=== PATIENT | male | born 1945 | race Caucasian/White ===

== ENCOUNTER 2017-03-13 16:53 | Inpatient (IN) ==
[2017-03-13] MEDS ORDERED: ASPIRIN 325 MG TABLET PO STA (17:35)
[2017-03-13] MEDS ORDERED: ONDANSETRON 4 MG/2 ML VIAL IV STA (17:35)
[2017-03-13] MEDS ORDERED: MORPHINE 2 MG/1 ML SYRINGE IV STA ×3 (17:35→17:55)
[2017-03-13] MEDS ORDERED: NITROGLYCERIN 2% OINT 1 INCH/GM PACK TOP STA (17:37)
[2017-03-13] MEDS ORDERED: ASPIRIN 325 MG TABLET ONE (17:39)
[2017-03-13] MEDS ORDERED: MORPHINE 2 MG/1 ML SYRINGE ONE ×2 (17:39→17:56)
[2017-03-13] MEDS ORDERED: ONDANSETRON 4 MG/2 ML VIAL ONE (17:39)
[2017-03-13] MEDS ORDERED: NITROGLYCERIN 2% OINT 1 INCH/GM PACK TOP ONE (17:39)
--- NOTE | 2017-03-13 17:39 | Emergency Department Note ---
Lionel Leggett Hilary, am scribing for, and in the presence of, Elie Limon MD 17: 30. Ashly Leggett James D, MD, personally performed the services described in this documentation, ascribed by Romana Flowers in my presence, and it is both accurate and complete 734 . Arrival - Arrival Chief Complaint: Chest Pain Stated Complaint: chest pain ED Nursing Triage Note: PT C/O LEFT SIDED CHEST PAIN SINCE 1400 TODAY. DESCRIBES SQUEEZING. PT TOOK 2 NTG ORDER EXPEDITER WITH SOME RELIEF. +DIAPHORESIS AT TRIAGE. Mode of Arrival: Wheelchair Limitations: No Limitations Source: Patient, RN Notes Reviewed - History of Present Illness HPI Narrative: Pt is a 71 y/o white male presenting to the ED with c/o chest pain which onset at 1400 today. Pt confirms left sided squeezing chest pain and diaphoresis but denies SOB or nausea. He states that he took 4 Nitro with minimal relief. Pt reports having this same feeling last year when he had a stent put in. No other complaints or problems stated in the ED. Onset (ago): hour(s) Consistency: constant Severity: mild Severity scale (1-10): 3 Quality: other (squeezing) Allergies/Adverse Reactions: Allergies Allergy/AdvReac Type Severity Reaction Status Date / Time Fsytrub-Cxy-Zvc Reductase AdvReac Muscle Pain Verified 03/13/17 17:10 Inhibitor Home Medications: Home Medications Medication Instructions Recorded Confirmed Type Aspirin [Ecotrin] 81 mg PO QAM 03/18/16 03/13/17 History Olmesartan/Hydrochlorothiazide 1 each PO QAM 03/18/16 03/13/17 History [Benicar Hct 20-12.5 mg Tablet] Clopidogrel Bisulfate [Clopidogrel] 75 mg PO QPM 03/13/17 03/13/17 History Cyanocobalamin (Vitamin B-12) 1,000 mcg PO BID 03/13/17 03/13/17 History [Vitamin B-12] Ezetimibe [Ezetimibe] 10 mg PO QAM 03/13/17 03/13/17 History Magnesium Chloride [Slow Mag] 64 mg PO BID 03/13/17 03/13/17 History Multivitamin/Iron/Folic Acid 1 each PO QPM 03/13/17 03/13/17 History [Centrum Complete Multivit Tab] [place]-3 Fatty Acids [Fish Oil] 300 mg PO BID 03/13/17 03/13/17 History Review of System - Review of System 12 point system: reviewed and no additional remarkable complaints except as stated - Review of System Constitutional: Present: diaphoresis. Absent: fever Respiratory: Absent: respiratory distress (SOB) Cardiovascular: Present: chest pain Gastrointestinal: Absent: nausea Medical,Surgical,& Family Hx - Medical History Cardio: History of: Hypertension, [place] Neurology: History of: Vertigo Endocrine: History of: Dyslipidemia Rheumatology: History of;: Rheumatoid Arthritis Genitourinary: History of: Kidney Stones Musculoskeletal: No history of: Osteoporosis - Surgical History Cardiac Surgeries: Sugical HX of: Cardiac Catheterization (FEB 2016) Abdominal Surgeries: Patient denies: Abdominal Surgery - Family History Family History: Reports;: Family Heart Disease (mother and brother), Family Hypertension - Social History Smoking Status: Never smoker Frequency of Alcohol Use: None Type of Drug Use: None Exam Physical Examination: GENERAL: This is a well-nourished, well-developed white male in no apparent distress. VITAL SIGNS: Temperature: 96.8 Pulse: 57 Respiratory: 18 Blood Pressure: 114/ 79 O2Sat: 96 HEENT: Head is normocephalic and atraumatic. Pupils are equally round and reactive to light. Extraocular movement are intact. Oropharynx is benign with moist mucous membranes. NECK: Neck is soft and supple without tenderness. There are no masses. There is no lymphadenopathy. LUNGS: Lungs are clear to auscultation bilaterally. Chest rises symmetrically. There is no chest wall tenderness. CV: Heart is bradycardic rate and rhythm without murmurs, rubs, or gallops. ABDOMEN: Abdomen is soft, non-tender to palpation. There are no abnormal masses palpated. There is no organomegaly. Bowel sounds are present and active. SKIN: Skin is warm and dry. No rash. EXTREMITIES: Patient has full range of motion without tenderness. There is no pedal edema. NEUROLOGIC: Awake, alert, and oriented x4. Cranial nerves II through XII are grossly intact. There are no motorsensory deficits. PSYCHIATRIC: Normal affect. Normal mood. Vital Signs: Vital Signs Temperature 96.8 F L 03/13/17 18:01 Pulse Rate 57 L 03/13/17 18:01 Respiratory Rate 18 03/13/17 18:01 Blood Pressure 114/79 03/13/17 18:01 O2 Sat by Pulse Oximetry 96 03/13/17 17:08 Course Course Narrative: Patient was given Lovenox, Nitropaste, aspirin, morphine, and Zofran in the emergency department. Patient will be taken to the Account Receivable Associate by Dr. Bowser for left heart cath and possible PCI. - Consultations Consultation #1: Discussed with Dr. Bowser. Patient will be admitted to her service. Initial orders written for her. He will assume care upon patient's arrival to the [facility]. Time: 17:39 Results - Labs CBC & BMP: 03/13/17 17:25 03/13/17 17:25 Lab Results: I have reviewed the patients labs Labs: Laboratory Tests 03/13/17 17:25 Troponin I 0.019 - EKG EKG results: interpreted by ERMD - Impressions EKG: Normal sinus rhythm with a rate of 63, nonspecific ST-T wave changes, left axis deviation. - Diagnostic Findings Procedure: Chest x-ray: image reviewed by me (No infiltrates, no pleural effusions) Disposition Clinical Impression: Unstable angina, CAD (coronary artery disease), Essential (primary) hypertension Case discussed with: patient, patient's family Disposition: Still a Patient Condition: Stable Time of Disposition: 18:29
[2017-03-13 17:46] LABS: Basophils # 0.1 10*3/uL (0.0-0.2); Basophils % 0.8 % (0.0-0.8); Eosinophils # 0.2 10*3/uL (0.0-0.87); Eosinophils % 2.8 % (0.00-10.9); Hematocrit 42.8 VOL% (42.0-52.0); Hemoglobin 15.2 GM/DL (14.0-18.0); Immature Granulocytes % 0.4 %; Immature Granulocytes Absolute 0.03 #; Lymphocytes % 26.1 % (21.2-54.2); Mean Corpuscular HGB Conc 35.5 GM/DL (32-36); Mean Corpuscular Hemoglobin 32 PG (27-34); Mean Corpuscular Volume 89.4 FL (87-102); Mean Platelet Volume 9.4 FL (9.6-12.0); Monocytes # 0.6 10*3/uL (0.11-0.8); Monocytes % 7.7 % (1.7-12.7); Neutrophils # 4.7 10*3/uL (1.4-7.4); Neutrophils % 62.2 % (38.7-73.9); Platelet Count 256 T/CUMM (130-400); Red Blood Count 4.79 MC/CUMM (3.8-5.5); Red Cell Distribution Width 12.9 % (9.3-17.3); White Blood Count 7.6 T/CUMM (4-12)
--- NOTE | 2017-03-13 17:48 | XRay Report ---
XR chest 1V portable Indication: Chest pain. Chest one view: Comparison 03/18/2016. Heart size and mediastinal contour remain normal. No new infiltrates are shown with diffuse continued peribronchial thickening present. No edema. Impression: Airways disease such as bronchitis or viral syndrome, similar to one year ago. PROCEDURE INTERPRETED AT [facility] DEPARTMENT OF RADIOLOGY Final Report Signed by: Trung Ann M.D.
[2017-03-13 17:59] LABS: PT Patient Result 10.3 SECS; Partial Thromboplastin Time 26.6 SECS (0-40)
--- NOTE | 2017-03-13 18:03 | EKG Report ---
Stationary ECG Study [facility] ER Test Date: 03/13/2017 6:02:04 PM Pat Name: ALEX BEATTY Department: Room: Gender: M Swine Genetics Researcher: : 1945 Requested by: Jessi Harden Order Number: [id number] Reading MD: VALENTINO ADAMS Intervals [place] Rate: 43 P: 59 SD: 217 QRS: -22 QRSD: 89 T: 83 QT: 427 QTc: 373 Interpretive Statements SINUS BRADYCARDIA WITH PROLONGED SD INTERVAL LEFT AXIS DEVIATION INCOMPLETE RBBB/PULMONARY DISEASE PATTERN Electronically Signed On 03-14-17 15:56:46 CDT by VALENTINO ADAMS [email or web address]
[2017-03-13] MEDS ORDERED: ENOXAPARIN 100 MG/ML SYRINGE SUBCUT STA (18:06)
[2017-03-13] MEDS ORDERED: ENOXAPARIN 100 MG/ML SYRINGE SUBCUT ONE (18:07)
[2017-03-13 18:22] LABS: Albumin 3.7 G/DL (3.4-5.0); Bilirubin,Total 0.4 MG/DL (0.2-1.0); Calcium 9.5 MG/DL (8.5-10.1); Magnesium 2.3 MG/DL (1.8-2.4); Osmolality,Calculated 281.4 MOS/KG (273-304); Potassium 4.1 MMOL/L (3.5-5.1); Total Protein 7.3 G/DL (6.4-8.3)
[2017-03-13] MEDS ORDERED: DIAZEPAM 5 MG TABLET PO ONE (18:26)
[2017-03-13] MEDS ORDERED: diphenhydrAMINE CAP 25 MG CAPSULE PO ONE (18:26)
--- NOTE | 2017-03-13 18:31 | Cardiology History & Physical ---
Assessment and Plan - Time spent with patient Time spent with patient: Greater than 30 minutes (Examination, documentation, film review, orders.) (1) Hypertension Status: Chronic Current Visit: No Qualifiers: Hypertension type: essential hypertension Qualified Code(s): I10 - Essential (primary) hypertension (2) Hyperglycemia Status: Chronic Assessment and plan: The patient states that Dr. Benson told him that he was "borderline." He states it has been 6 hours since he ate at noon and his blood sugar is 124. Current Visit: No (3) CAD (coronary artery disease) Status: Chronic Current Visit: No Qualifiers: Coronary Disease-Associated Artery/Lesion type: [place] artery [place] vs. transplanted heart: [place] heart Associated angina: with unstable angina Qualified Code(s): I25.110 - Atherosclerotic heart disease of [place] coronary artery with unstable angina pectoris (4) Unstable angina Status: Acute Assessment and plan: The patient is on dual antiplatelet therapy he has a heart rate in the 40s and continues to have discomfort. He looks uncomfortable at this time. The patient has stuttering pain has come and gone even during the duration of my exam. I think given the nature of his discomfort in the repetitive nature compared to his myocardial infarction in 2016 and the distribution of his stents with a potentially silent area and a troponin that is measurable at this time this represents an unstable situation. I think the patient should go for urgent left heart catheterization selective coronary angiography and possible percutaneous coronary mention. I discussed with the patient and his and he is agreeable. He understands that since it has only been 6 hours since he ate and this is an urgent situation he will not be given conscious sedation by hospital policy. He is agreeable to proceed with local anesthesia. Risks benefits and options were discussed with the patient consent was signed by both the patient and myself. The plan is to use a radial approach for maximal patient comfort. Current Visit: Yes (5) CAD (coronary artery disease) Status: Acute Current Visit: Yes (6) Essential (primary) hypertension Status: Acute Current Visit: Yes History of Present Illness Chief complaint: Chest pain History of present illness: Mr. Lino is a 71 year old male with known coronary disease who had PCI of the obtuse marginal 03/20/2016 at the time of acute coronary syndrome. This was performed by his embedded nurse Dr. Kris Benson. The patient has done well since that time until today around 230 PM he began having chest discomfort that was exactly like the pain that he had last February. The discomfort was a stuttering discomfort and has continued throughout the afternoon. When he got off work he came to the emergency room for evaluation. He has sinus bradycardia with no diagnostic ST segment changes but was administered medications in the emergency room and actually got worse after receiving a nitroglycerin. His pain continued to escalate when it was present it was 7 or 8 out of 10. He did not have associated nausea or diaphoresis but he does have discomfort in his shoulder. He states with the second dose of IV morphine he improved. His pain persist while I was they are evaluating him. He is currently on dual antiplatelet therapy for which he has been compliant. He has been intolerant of statins in the past. His primary care physician is Dr. Anup EPSTEIN and he drives to [place] to see him in his new practice. Home Medications Medication Instructions Recorded Confirmed Type Aspirin [Ecotrin] 81 mg PO QAM 03/18/16 03/13/17 History Olmesartan/Hydrochlorothiazide 1 each PO QAM 03/18/16 03/13/17 History [Benicar Hct 20-12.5 mg Tablet] Clopidogrel Bisulfate [Clopidogrel] 75 mg PO QPM 03/13/17 03/13/17 History Cyanocobalamin (Vitamin B-12) 1,000 mcg PO BID 03/13/17 03/13/17 History [Vitamin B-12] Ezetimibe [Ezetimibe] 10 mg PO QAM 03/13/17 03/13/17 History Magnesium Chloride [Slow Mag] 64 mg PO BID 03/13/17 03/13/17 History Multivitamin/Iron/Folic Acid 1 each PO QPM 03/13/17 03/13/17 History [Centrum Complete Multivit Tab] [place]-3 Fatty Acids [Fish Oil] 300 mg PO BID 03/13/17 03/13/17 History Allergies Allergy/AdvReac Type Severity Reaction Status Date / Time Msckyak-Zzw-Eob Reductase AdvReac Muscle Pain Verified 03/13/17 17:10 Inhibitor - Constitutional Constitutional: Present: weight gain. Absent: anorexia, chills, weakness - EENT Eyes: Absent: blurry vision, diplopia Ears: Absent: decreased hearing, ear discharge Nose, mouth and throat: Absent: epistaxis, headache(s), lip swelling, nasal congestion - Cardiovascular Cardiovascular: Present: chest pain at rest, chest pain with activity, lightheadedness. Absent: claudication, diaphoresis, edema, palpitations - Respiratory Respiratory: Absent: cough, dyspnea on exertion - Gastrointestinal Gastrointestinal: Absent: abdominal pain, dyspepsia, dysphagia, fecal incontinence, heartburn, hematemesis - Genitourinary Genitourinary: Absent: difficulty urinating, hematuria - Musculoskeletal Musculoskeletal: Present: arthralgias, myalgias (With statins) - Neurological Neurological: Absent: abnormal speech, behavioral changes, disequilibrium, dizziness - Psychiatric Psychiatric: Absent: anxiety, depression - Endocrine Endocrine: Absent: cold intolerance, heat intolerance - Hematologic/Lymphatic Hematologic/Lymphatic: Absent: easy bleeding, easy bruising Medical,Surgical,& Family Hx - Medical History Cardio: History of: Hypertension, [place] (PCI of the obtuse marginal 03/20/2016) Neurology: History of: Vertigo Endocrine: History of: Dyslipidemia Rheumatology: History of;: Rheumatoid Arthritis Genitourinary: History of: Kidney Stones Musculoskeletal: No history of: Osteoporosis - Surgical History Cardiac Surgeries: Sugical HX of: Cardiac Catheterization (FEB 2016) Abdominal Surgeries: Patient denies: Abdominal Surgery - Family History Family History: Reports;: Family Heart Disease (mother and brother), Family Hypertension - Social History Smoking Status: Never smoker Frequency of Alcohol Use: None Type of Drug Use: None Cardiology Physical Exam - Constitutional Vitals: Vital Signs Temp Pulse Resp BP Pulse Ox 96.8 F L 57 L 18 114/79 96 03/13/17 18:01 03/13/17 18:01 03/13/17 18:01 03/13/17 18:01 03/13/17 17:08 Intake and Output 03/13/17 03/13/17 03/13/17 07:59 15:59 23:59 Other: Weight 104.326 kg Patient Weight 03/13/17 23:59 Weight 104.326 kg General appearance: normal weight - Head Head exam: Present: normal inspection - Eye Eye exam: Present: EOMI - ENT ENT exam: Present: normal exam, other (His membranes are dry he does not have JVD) - Neck Neck exam: Present: normal inspection - Respiratory Respiratory exam: Present: clear to auscultation bilaterally - Cardiovascular Cardiovascular exam: Present: bradycardia (Heart rate is 45 it appears to be sinus.) - GI/Abdominal GI/Abdominal exam: Present: normal bowel sounds - Extremities Exam Extremities exam: Present: normal inspection - Back Exam Back exam: Present: normal inspection - Neurological Exam Neurological exam: Present: alert, oriented X3 - Psychiatric Psychiatric exam: Present: normal affect - Skin Skin exam: Present: normal color, warm Result/EKG - Labs CBC & BMP: 03/13/17 17:25 03/13/17 17:25 Labs: Laboratory Results - last 24 hr 03/13/17 03/13/17 03/13/17 17:25 17:25 17:25 WBC 7.6 RBC 4.79 Hgb 15.2 Hct 42.8 MCV 89.4 MCH 32 MCHC 35.5 RDW 12.9 Plt Count 256 MPV 9.4 L Neut % (Auto) 62.2 Lymph % (Auto) 26.1 Coal % (Auto) 7.7 Eos % (Auto) 2.8 Baso % (Auto) 0.8 Neut # (Auto) 4.7 Lymph # (Auto) 2.0 Coal # (Auto) 0.6 Eos # (Auto) 0.2 Baso # (Auto) 0.1 Immature Gran % 0.4 Nucleated RBC % 0.0 Immature Gran # 0.03 Nucleated RBCs # 0.00 Immature Plt Fraction 0.0 INR 1.0 PT Patient/Control Mix 10.3 Circ Anticoag PTT 26.6 Sodium 140 Potassium 4.1 Chloride 105 Carbon Dioxide 27 Anion Gap 12.1 BUN 18 Creatinine 1.20 GFR Calculation 80 BUN/Creatinine Ratio 15.00 Glucose 124 H Calculated Osmolality 281.4 Calcium 9.5 Magnesium 2.3 Total Bilirubin 0.40 AST 23 ALT 34 Alkaline Phosphatase 76 Troponin I Total Protein 7.3 Albumin 3.7 Globulin 3.6 H Albumin/Globulin Ratio 1.0 L Lipase 213.0 03/13/17 17:25 WBC RBC Hgb Hct MCV MCH MCHC RDW Plt Count MPV Neut % (Auto) Lymph % (Auto) Coal % (Auto) Eos % (Auto) Baso % (Auto) Neut # (Auto) Lymph # (Auto) Coal # (Auto) Eos # (Auto) Baso # (Auto) Immature Gran % Nucleated RBC % Immature Gran # Nucleated RBCs # Immature Plt Fraction INR PT Patient/Control Mix Circ Anticoag PTT Sodium Potassium Chloride Carbon Dioxide Anion Gap BUN Creatinine GFR Calculation BUN/Creatinine Ratio Glucose Calculated Osmolality Calcium Magnesium Total Bilirubin AST ALT Alkaline Phosphatase Troponin I 0.019 Total Protein Albumin Globulin Albumin/Globulin Ratio Lipase - Diagnostic Findings Procedure: Chest x-ray: image reviewed by me - EKG EKG results: interpreted by me (Sinus bradycardia. He has incomplete right bundle branch block T-wave inversion across the anterior precordium. No ST elevation)
--- NOTE | 2017-03-13 18:37 | History and Physical Update ---
Sedation H&P Update - History and Physical H&P was reviewed, the patient examined and there: are no changes in the patients condition since last H&P was completed. - Dictation Physical: refer to H&P completed by admitting physician - Physical Exam Mental Status: alert and oriented Heart: other (Regular bradycardia) Lung: clear to auscultation Abdomen: within normal limits Vitals: within normal limits - Sedation Plan for Sedation: other (local) Patient Consent: Procedure disscussed with patient and patinet has consented., Risks and benefits were discussed with patient,including infection,, bleeding, injury to surrounding structures, seizure, temporary nerve, Patient understands and accepts potential risks/benefits and agrees to, proceed. ASA Class: III Airway Assessment: Class III: Soft palate, base of uvula visible
[2017-03-13] MEDS ORDERED: LIDOCAINE 1% 20 ML VIAL ONE (18:43)
[2017-03-13] MEDS ORDERED: HEPARIN/NACL 0.9% 2 UNITS/ML 1,500 ML IV ONE (18:43)
[2017-03-13] MEDS ORDERED: diphenhydrAMINE CAP 50 MG CAPSULE ONE (18:44)
[2017-03-13] MEDS ORDERED: NITROGLYCERIN DRIP 50 MG/250 ML BOTTLE IV ONE ×2 (18:49→19:36)
[2017-03-13] MEDS ORDERED: MIDAZOLAM 2 MG/2 ML VIAL ONE (18:50)
[2017-03-13] MEDS ORDERED: fentaNYL 100 MCG/2 ML VIAL ONE (18:50)
[2017-03-13] MEDS ORDERED: VERAPAMIL 5 MG/2 ML VIAL ONE (18:50)
[2017-03-13] MEDS ORDERED: CLOPIDOGREL 75 MG TABLET PO SCH (19:00)
[2017-03-13] MEDS ORDERED: DOPamine 800 MG/250 ML PREMIX IV ONE (19:24)
[2017-03-13] MEDS ORDERED: ATROPINE 1 MG/1 ML VIAL ONE (19:29)
[2017-03-13] MEDS ORDERED: EPTIFIBATIDE 20,000 MCG/10 ML VIAL ONE (19:29)
[2017-03-13] MEDS ORDERED: EPTIFIBATIDE 75 MG/100 ML BOTTLE IV ONE (19:29)
[2017-03-13] MEDS ORDERED: HEPARIN/NACL 0.9% 2 UNITS/ML 500 ML IV ONE (19:49)
[2017-03-13] MEDS ORDERED: TICAGRELOR 90 MG TABLET ONE (20:09)
[2017-03-13] MEDS ORDERED: GLUCAGON 1 MG VIAL IM PRN (20:23)
[2017-03-13] MEDS ORDERED: DEXTROSE 50% 25 GM/50 ML SYRINGE IV PRN (20:23)
[2017-03-13] MEDS ORDERED: ZALEPLON 5 MG CAPSULE PO PRN (20:23)
[2017-03-13] MEDS ORDERED: MORPHINE 2 MG/1 ML SYRINGE IV PRN (20:26)
[2017-03-13] MEDS ORDERED: NITROGLYCERIN DRIP 50 MG/250 ML BOTTLE IV SCH (20:30)
--- NOTE | 2017-03-13 20:40 | Cardiac Catheterization ---
Date of Procedure:: 03/13/17 Pre-op Diagnosis: Acute coronary syndrome Post-op diagnosis: other (Non-ST elevation myocardial infarction secondary to 100% occlusion of a large right posterior lateral branch) Procedure: Procedure: 1. Left heart catheterization resting hemodynamics 2. Left and right selective coronary angiography 3. Percutaneous coronary mention of a large right posterior lateral branch with EDWARD 2 (4 0 x 12 mm Xience Alpine drug-eluting stent distally overlapping with a 4.0 x 8 mm Xience Alpine or proximally) 100% occlusion with DEE 0 flow pre-PCI and 0% occlusion angiographically post PCI with DEE-3 flow in the stented segment 4. POBA of the PLB 1 (99% stenosis ostially pre-PCI and 99% stenosis post POBA with DEE 2 flow) - Vessel felt to be too small to accept the risk of complication for stenting based upon location and potential benefit. 5. Aspiration thrombectomy of a large thrombus in the posterior lateral branch. After signed an informed consent was obtained, the patient was prepped and draped in standard fashion for right radial access. Time out was recorded. 0.5 mL of 1% lidocaine were infiltrated in the skin and subcutaneous tissue overlying the right radial artery and Seldinger technique was utilized with a Angiocath to obtain access to the right radial artery. A Terumo glide wire was then advanced into the midforearm under fluoroscopic guidance. The Angiocath was removed and a 6 [place] Terumo glide sheath was placed over the Glidewire. The sheath was aspirated and flushed and then 5 mg of verapamil and 200 g of nitroglycerin were given through the sheath. At this time an 035 J-wire was used to guide a Alvo 6 [place] catheter into the central aorta across the aortic valve and into the ventricle. Pressure measurements and pullback measurements were obtained. The Alvo catheter was then used to engage the left main coronary artery and multiple orthogonal views of the left system were obtained. The catheter then was torqued into the right coronary artery and orthogonal views of the right system were obtained. The catheter was then exchanged over the wire. The sheath was aspirated and flushed. At this time the catheter was exchanged over the exchange length 035 J-wire and AL 0.75 wire was advanced over the wire in the right coronary slightly engaged. A 180 cm Zingfinro water wire was advanced through the guide and into the posterior lateral branch. A 2.0 x 8 mm trek balloon was used to Dotter the area there was DEE I flow reestablished. The area of high-grade stenosis was then balloon to 10 rocio. The balloon was removed there is an enormous clot burden distal to the stenosis the balloon was removed and a Pronto V3 aspiration catheter was used to remove clot from this area. A very large red clot was removed there was dramatic improvement in the flow. At this time a 4 oh by 12 mm Xience Alpine stent was deployed at the takeoff of the PDA. There was DEE III flow in the remainder the vessel however he was DEE 0 flow in the PDA. Attempts to rewire this were unsuccessful nitroglycerin were given several times. After the vessel was opened the patient had a storm of bradycardia heart rate went into the 20s. He responded to 2 mg dose in 1 mg aliquots of atropine. His pressure and heart rate responded nicely and he remained stable. Multiple attempts to open the PDA were unsuccessful nitroglycerin was given again at this time there appeared to possibly be a lot linear dissection just proximal to the stent was probably caused by the wire and attempts to rewire the PDA so a second 4.0 x 8 mm Xience Alpine drug- eluting stent was used to overlap the proximal segment. These areas were postdilated to high pressure atmospheres with both NC and compliant balloons including the overlap. The wires were removed orthogonal views were obtained. In a ITALIAN view there was noticed to be an ostial high-grade stenosis of the first branch of the posterior lateral branch. With significant amount of difficulty in the area distal to the stent this was ultimately wired multiple inflations for as long as 1 minute with a 1.5 X8 [place] balloon. There was no improvement. Given the location and the size of the posterior lateral branch the angulation and the size of this branch of the extra lateral branch was felt that this was best left alone and treated medically. The wire was removed multiple orthogonal views were taken. The concrete wall grinder operator reviewed the films. And a TR band was placed over the glide sheath and used for hemostasis. Total contrast exposure 265 cc of visipaque Total x-ray exposure: 20.2 min fluoroscopy time and 3853 mGy air Kerma Findings: 1. EF not assessed 2. Hemodynamics LV: 122/4 EDP:13 Ao:120/70 3. Left main: Mild luminal irregularities and this is a very small vessel. 4: Left anterior descending artery: There is diffuse moderate disease in the LAD that this progressed minimally from his previous left heart catheterization. There is mild to moderate disease throughout but no high- grade epicardial stenosis in the LAD or its large first diagonal. 5: Left circumflex artery: This vessel is nondominant. The previously deployed stents in the obtuse marginal are widely patent with minimal lumen loss 6: Right coronary artery: Is a very large dominant vessel. There is ectasia in the proximal segment. There is approximately 40% ostial stenosis of a right PDA. The there is a large posterior lateral branch that has a small nipple and 100% occlusion at the takeoff of the PDA. There is DEE 0 flow in this vessel. After the posterior lateral branch was opened. There is a first branch the posterior lateral branch has ostial 99% stenosis. It has DEE II flow this was ballooned but felt too small for stenting safely. Despite multiple attempts to cross into the PDA and multiple doses of nitroglycerin there was no success in opening the occluded PDA that was potentially jailed. The intent was to be distal to this branch and this may represent plaque shift. Plan: 1. Therapeutic lifestyle changes. 2. Escalate dual antiplatelet therapy the patient had a massive clot burden on clopidogrel and aspirin 3. Cardiac rehabilitation 4. Because of bradycardia and ventricular bigeminy with catholic of flow the patient be monitored in the ICU. I anticipate a significant troponin elevation. 5. If the patient's bradycardia resolves consider beta-gisele at this time his heart rate will not allow 6. The patient is intolerant of statins in the past continue Zetia consider PCS canine inhibitors 7. Continue aspirin and ARB Implants: 4.0 x 12 mm Xience Alpine drug-eluting stent 4.0 x 8 mm Xience Alpine drug-eluting stent Anesthesia: local Surgeon / Physician: Ginna Bowser Twister Tender Paper: none Estimated blood loss: none Specimens: none sent Condition: other (Guarded) Disposition: ICU/CCU - Medications / Follow-up
[2017-03-13] MEDS ORDERED: PNEUMOCOCCAL VACCINE (13 VALENT) 0.5 ML SYRINGE IM ONE (21:08)
[2017-03-13] MEDS: INSULIN REGULAR 100 UNIT/ML SUBCUT SCH (21:11)
[2017-03-13] MEDS: MAGNESIUM CHLORIDE 64 MG TABLET PO SCH (21:17)
[2017-03-13] MEDS: SODIUM CHLORIDE 0.45% 1,000 ML IV SCH (21:17)
[2017-03-13] MEDS: TICAGRELOR 90 MG TABLET PO SCH (21:18)
[2017-03-13] MEDS: OMEGA 3 ACID ETHYL ESTERS 1 GM CAPSULE PO SCH (21:18)
[2017-03-13] MEDS: MULTIVITAMIN (CENTRUM) TABLET PO SCH (21:18)
[2017-03-13] MEDS: CYANOCOBALAMIN 500 MCG TABLET PO SCH (21:20)
[2017-03-14 04:41] LABS: Basophils % 0.2 % (0.0-0.8); Eosinophils # 0.1 10*3/uL (0.0-0.87); Eosinophils % 1.5 % (0.00-10.9); Hematocrit 38.9 VOL% (42.0-52.0); Hemoglobin 13.6 GM/DL (14.0-18.0); Immature Granulocytes % 0.2 %; Immature Granulocytes Absolute 0.02 #; Lymphocytes # 1.8 10*3/uL (1.4-4.0); Lymphocytes % 20.9 % (21.2-54.2); Mean Corpuscular Hemoglobin 31 PG (27-34); Mean Corpuscular Volume 89.4 FL (87-102); Mean Platelet Volume 9.6 FL (9.6-12.0); Monocytes # 0.6 10*3/uL (0.11-0.8); Monocytes % 7.1 % (1.7-12.7); Neutrophils % 70.1 % (38.7-73.9); Platelet Count 216 T/CUMM (130-400); Red Blood Count 4.35 MC/CUMM (3.8-5.5); Red Cell Distribution Width 12.9 % (9.3-17.3); White Blood Count 8.5 T/CUMM (4-12)
[2017-03-14 05:06] LABS: Osmolality,Calculated 280.4 MOS/KG (273-304); Potassium 3.8 MMOL/L (3.5-5.1)
[2017-03-14 05:10] LABS: Risk Ratio 5.76; VLDL CHOLESTEROL 56.2 MG/DL
--- NOTE | 2017-03-14 05:57 | EKG Report ---
Stationary ECG Study [facility] ER Test Date: 03/13/2017 5:04:22 PM Pat Name: ALEX BEATTY Department: Room: 123 Gender: M Manager Of Security: : 1945 Requested by: Renée Palomino Order Number: [id number] Caren MD: VALENTINO ADAMS Intervals [place] Rate: 63 P: 57 SD: 205 QRS: -30 QRSD: 86 T: 78 QT: 387 QTc: 393 Interpretive Statements SINUS RHYTHM LEFT AXIS DEVIATION INCOMPLETE RBBB/PULMONARY DISEASE PATTERN Electronically Signed On 03-14-17 15:55:21 CDT by VALENTINO ADAMS [id number]
[2017-03-14] MEDS: SODIUM CHLORIDE 0.45% 1,000 ML IV SCH ×2 (07:48→15:37)
--- NOTE | 2017-03-14 07:50 | Cardiology Progress Note ---
Assessment and Plan (1) Hypertension Status: Chronic Current Visit: No Qualifiers: Hypertension type: essential hypertension Qualified Code(s): I10 - Essential (primary) hypertension (2) Hyperglycemia Status: Chronic Current Visit: No (3) CAD (coronary artery disease) Status: Chronic Current Visit: No Qualifiers: Coronary Disease-Associated Artery/Lesion type: [place] artery [place] vs. transplanted heart: [place] heart Associated angina: with unstable angina Qualified Code(s): I25.110 - Atherosclerotic heart disease of [place] coronary artery with unstable angina pectoris (4) Essential (primary) hypertension Status: Acute Current Visit: Yes (5) Non-ST elevated myocardial infarction (non-STEMI) Status: Acute Assessment and plan: S/p urgent PCI of the RCA with EDWARD X 2 and loss of rPDA due to spasm/plaque shift. Current Visit: Yes Cardiology - PN: Subj Interval history: Mr. Lino is doing well this morning he has not had any additional chest pain. The [place] nurses report a 6 beat run of nonsustained ventricular tachycardia. This is not in the chart at this time. Hopefully it will appear later. I will review the telemetry. The patient has not had any chest pain. His vital signs have remained stable his urine output has been good. His troponin is still rising will check a few more troponins. Anticipate transfer to the floor. The patient is on angiotensin receptor gisele and dual antiplatelet therapy. He is also on prophylactic dose heparin for DVT. The patient is intolerant of all previous statins and declines a statin. He currently has persistent bradycardia and had heart rate into the teens at the time of his revascularization I think the beta-gisele should be held at this time. Heart rate is about 55 when I saw him. I discussed all the findings last night in the intervention with the patient including the loss of the PDA. Exam (Progress Note) - Constitutional Vitals: Period Temp Pulse Resp BP Sys/Cuevas Pulse Ox Last 24 Hr 96.8 F-98.3 F 52-68 12-18 94-155/62-82 92-96 General appearance: normal weight - Head Head exam: Present: normal inspection - Eye Eye exam: Present: EOMI - ENT ENT exam: Present: normal exam - Neck Neck exam: Present: normal inspection - Respiratory Respiratory exam: Present: clear to auscultation bilaterally - Cardiovascular Cardiovascular exam: Present: bradycardia - GI/Abdominal GI/Abdominal exam: Present: normal bowel sounds - Rectal Rectal Exam: black stool - Extremities Exam Extremities exam: Present: normal inspection - Back Exam Back exam: Present: normal inspection - Neurological Exam Neurological exam: Present: alert, oriented X3 - Psychiatric Psychiatric exam: Present: normal affect, normal mood - Skin Skin exam: Present: normal color, warm Result/EKG - Labs CBC & BMP: 03/14/17 04:07 03/14/17 04:07 Labs: Laboratory Results - last 24 hr 03/13/17 03/13/17 03/13/17 17:25 17:25 17:25 WBC RBC Hgb Hct MCV MCH MCHC RDW Plt Count MPV Neut % (Auto) Lymph % (Auto) Graham % (Auto) Eos % (Auto) Baso % (Auto) Neut # (Auto) Lymph # (Auto) Graham # (Auto) Eos # (Auto) Baso # (Auto) Immature Gran % Nucleated RBC % Immature Gran # Nucleated RBCs # Immature Plt Fraction INR 1.0 PT Patient/Control Mix 10.3 Circ Anticoag PTT 26.6 Sodium 140 Potassium 4.1 Chloride 105 Carbon Dioxide 27 Anion Gap 12.1 BUN 18 Creatinine 1.20 GFR Calculation 80 BUN/Creatinine Ratio 15.00 Glucose 124 H POC Glucose Calculated Osmolality 281.4 Calcium 9.5 Magnesium 2.3 Total Bilirubin 0.40 AST 23 ALT 34 Alkaline Phosphatase 76 Troponin I B-Natriuretic Peptide 42 Total Protein 7.3 Albumin 3.7 Globulin 3.6 H Albumin/Globulin Ratio 1.0 L Triglycerides Cholesterol LDL Cholesterol VLDL Cholesterol HDL Cholesterol Heart Disease Risk Ratio Lipase 213.0 03/13/17 03/13/17 03/13/17 17:25 17:25 21:07 WBC 7.6 RBC 4.79 Hgb 15.2 Hct 42.8 MCV 89.4 MCH 32 MCHC 35.5 RDW 12.9 Plt Count 256 MPV 9.4 L Neut % (Auto) 62.2 Lymph % (Auto) 26.1 Graham % (Auto) 7.7 Eos % (Auto) 2.8 Baso % (Auto) 0.8 Neut # (Auto) 4.7 Lymph # (Auto) 2.0 Graham # (Auto) 0.6 Eos # (Auto) 0.2 Baso # (Auto) 0.1 Immature Gran % 0.4 Nucleated RBC % 0.0 Immature Gran # 0.03 Nucleated RBCs # 0.00 Immature Plt Fraction 0.0 INR PT Patient/Control Mix Circ Anticoag PTT Sodium Potassium Chloride Carbon Dioxide Anion Gap BUN Creatinine GFR Calculation BUN/Creatinine Ratio Glucose POC Glucose 130 H Calculated Osmolality Calcium Magnesium Total Bilirubin AST ALT Alkaline Phosphatase Troponin I 0.019 B-Natriuretic Peptide Total Protein Albumin Globulin Albumin/Globulin Ratio Triglycerides Cholesterol LDL Cholesterol VLDL Cholesterol HDL Cholesterol Heart Disease Risk Ratio Lipase 03/13/17 03/14/17 03/14/17 21:23 00:01 04:07 WBC 8.5 RBC 4.35 Hgb 13.6 L Hct 38.9 L MCV 89.4 MCH 31 MCHC 35.0 RDW 12.9 Plt Count 216 MPV 9.6 Neut % (Auto) 70.1 Lymph % (Auto) 20.9 L Graham % (Auto) 7.1 Eos % (Auto) 1.5 Baso % (Auto) 0.2 Neut # (Auto) 6.0 Lymph # (Auto) 1.8 Graham # (Auto) 0.6 Eos # (Auto) 0.1 Baso # (Auto) 0.0 Immature Gran % 0.2 Nucleated RBC % 0.0 Immature Gran # 0.02 Nucleated RBCs # 0.00 Immature Plt Fraction 0.0 INR PT Patient/Control Mix Circ Anticoag PTT Sodium Potassium Chloride Carbon Dioxide Anion Gap BUN Creatinine GFR Calculation BUN/Creatinine Ratio Glucose POC Glucose Calculated Osmolality Calcium Magnesium Total Bilirubin AST ALT Alkaline Phosphatase Troponin I 0.461 H D 2.320 H D B-Natriuretic Peptide Total Protein Albumin Globulin Albumin/Globulin Ratio Triglycerides Cholesterol LDL Cholesterol VLDL Cholesterol HDL Cholesterol Heart Disease Risk Ratio Lipase 03/14/17 03/14/17 03/14/17 04:07 04:07 04:07 WBC RBC Hgb Hct MCV MCH MCHC RDW Plt Count MPV Neut % (Auto) Lymph % (Auto) Graham % (Auto) Eos % (Auto) Baso % (Auto) Neut # (Auto) Lymph # (Auto) Graham # (Auto) Eos # (Auto) Baso # (Auto) Immature Gran % Nucleated RBC % Immature Gran # Nucleated RBCs # Immature Plt Fraction INR PT Patient/Control Mix Circ Anticoag PTT Sodium 140 Potassium 3.8 Chloride 105 Carbon Dioxide 28 Anion Gap 10.8 BUN 16 Creatinine 1.10 GFR Calculation 90 BUN/Creatinine Ratio 14.00 Glucose 108 H POC Glucose Calculated Osmolality 280.4 Calcium 9.0 Magnesium Total Bilirubin AST ALT Alkaline Phosphatase Troponin I 6.950 H D B-Natriuretic Peptide Total Protein Albumin Globulin Albumin/Globulin Ratio Triglycerides 281 H Cholesterol 196 LDL Cholesterol 126.0 VLDL Cholesterol 56.2 HDL Cholesterol 34 L Heart Disease Risk Ratio 5.76 Lipase Specialty Discharge - Follow Up or Referrals
--- NOTE | 2017-03-14 08:09 | EKG Report ---
Stationary ECG Study [facility] Test Date: 03/14/2017 7:59:24 AM Pat Name: ALEX BEATTY Department: Room: 123 Gender: M Manager Poker: SRIDEVI : 1945 Requested by: Renée Palomino Order Number: [id number] Reading MD: SHARIF YOUNG Intervals [place] Rate: 46 P: 62 AR: 212 QRS: -48 QRSD: 97 T: 6 QT: 425 QTc: 386 Interpretive Statements SINUS BRADYCARDIA WITH PROLONGED AR INTERVAL LEFT ANTERIOR FASCICULAR BLOCK Electronically Signed On 03-15-17 07:01:50 CDT by SHARIF YOUNG [email or web address]
[2017-03-14] MEDS ORDERED: OLMESARTAN 20 MG TABLET PO SCH (09:00)
[2017-03-14] MEDS: INSULIN REGULAR 100 UNIT/ML SUBCUT SCH ×4 (09:48→21:44)
[2017-03-14] MEDS: hydroCHLOROthiazide 12.5 MG CAPSULE PO SCH (09:49)
[2017-03-14] MEDS: CYANOCOBALAMIN 500 MCG TABLET PO SCH ×2 (09:49→21:44)
[2017-03-14] MEDS: EZETIMIBE 10 MG TABLET PO SCH (09:49)
[2017-03-14] MEDS: OMEGA 3 ACID ETHYL ESTERS 1 GM CAPSULE PO SCH ×2 (09:49→21:44)
[2017-03-14] MEDS: ASPIRIN EC 81 MG TABLET PO SCH (09:49)
[2017-03-14] MEDS: TICAGRELOR 90 MG TABLET PO SCH ×2 (09:49→21:45)
[2017-03-14] MEDS: MAGNESIUM CHLORIDE 64 MG TABLET PO SCH ×2 (09:49→21:45)
--- NOTE | 2017-03-14 10:18 | ECHO Report ---
Carroll Lino Exam Date: 03/14/2017 08:16 Referring Physician: Technologist: Bhavya Dunham Age: 71 Ht (in): 72 Wt (lb): 230 Gender: M Exam Location: [facility] Echo Indications: HTN, CAD, unstable angina, chest pain, AMI BP: 104 / 71 HR: 53 Rhythm: Sinus Technical Quality: good IMPRESSIONS Left ventricular ejection fraction is estimated at 60 % with very mild inferior hypokinesis. Mild concentric left ventricular hypertrophy with Grade I diastolic dysfunction. Tricuspid regurgitation velocities suggest a RVSP of 12mmHg + RAP. MEASUREMENTS (Male / Female) Normal Values 2D ECHO LV Diastolic Diameter PLAX 4.7 cm 4.2 - 5.9 / 3.9 - 5.3 cm LV Systolic Diameter PLAX 3.0 cm LV Fractional Shortening PLAX 36.1 % IVS Diastolic Thickness 1.2 cm 0.6 - 1.0 / 0.6 - 0.9 cm LVPW Diastolic Thickness 1.2 cm 0.6 - 1.0 / 0.6 - 0.9 cm Aortic Root Diameter 2.8 cm LA Systolic Diameter LX 3.5 cm 3.0 - 4.0 / 2.7 - 3.8 cm DOPPLER TR Peak Velocity 232.0 cm/s TR Peak Gradient 21.5 mmHg FINDINGS Left Ventricle Normal left ventricular cavity size. Mild concentric left ventricular hypertrophy with Grade I diastolic dysfunction. Left ventricular ejection fraction is estimated at 60 % with very mild inferior hypokinesis. Right Ventricle Normal right ventricular size. Right Atrium Normal right atrial size. Left Atrium Normal left atrial size. Mitral Valve Mildly thickened mitral valve with mild mitral regurgitation. Aortic Valve The aortic valve is trileaflet and has normal motion. Tricuspid Valve Morphologically normal tricuspid valve. Trace tricuspid valve regurgitation. Tricuspid regurgitation velocities suggest a RVSP of 12mmHg + RAP. Pulmonic Valve Morphologically normal pulmonic valve. Trace pulmonary valve regurgitation. Pericardium No pericardial effusion. Aorta Normal size aortic root and proximal ascending aorta. Ginna Bowser (Electronically Signed) Final Date: 14 March 2017 10:17
[2017-03-14] MEDS ORDERED: ENOXAPARIN 40 MG/0.4 ML SYRINGE SUBCUT SCH (14:00)
[2017-03-14] MEDS: MULTIVITAMIN (CENTRUM) TABLET PO SCH ×2 (17:42→18:52)
[2017-03-15 05:04] LABS: Basophils % 0.4 % (0.0-0.8); Eosinophils # 0.2 10*3/uL (0.0-0.87); Eosinophils % 2.3 % (0.00-10.9); Hemoglobin 14.1 GM/DL (14.0-18.0); Immature Granulocytes % 0.4 %; Immature Granulocytes Absolute 0.03 #; Lymphocytes % 24.6 % (21.2-54.2); Mean Corpuscular HGB Conc 35.3 GM/DL (32-36); Mean Corpuscular Hemoglobin 32 PG (27-34); Mean Corpuscular Volume 89.5 FL (87-102); Mean Platelet Volume 9.8 FL (9.6-12.0); Monocytes # 0.7 10*3/uL (0.11-0.8); Monocytes % 9.1 % (1.7-12.7); Neutrophils # 5.2 10*3/uL (1.4-7.4); Neutrophils % 63.2 % (38.7-73.9); Platelet Count 219 T/CUMM (130-400); Red Blood Count 4.47 MC/CUMM (3.8-5.5); Red Cell Distribution Width 12.8 % (9.3-17.3); White Blood Count 8.2 T/CUMM (4-12)
[2017-03-15 05:36] LABS: Calcium 9.1 MG/DL (8.5-10.1); Magnesium 2.1 MG/DL (1.8-2.4); Osmolality,Calculated 281.4 MOS/KG (273-304); Potassium 4.4 MMOL/L (3.5-5.1)
[2017-03-15] MEDS: INSULIN REGULAR 100 UNIT/ML SUBCUT SCH ×2 (08:51→12:22)
[2017-03-15] MEDS: hydroCHLOROthiazide 12.5 MG CAPSULE PO SCH (08:54)
[2017-03-15] MEDS: TICAGRELOR 90 MG TABLET PO SCH (08:54)
[2017-03-15] MEDS: MAGNESIUM CHLORIDE 64 MG TABLET PO SCH (08:55)
[2017-03-15] MEDS: CYANOCOBALAMIN 500 MCG TABLET PO SCH (08:55)
[2017-03-15] MEDS: OMEGA 3 ACID ETHYL ESTERS 1 GM CAPSULE PO SCH (08:55)
[2017-03-15] MEDS: EZETIMIBE 10 MG TABLET PO SCH (08:55)
[2017-03-15] MEDS: ASPIRIN EC 81 MG TABLET PO SCH (08:55)
[2017-03-15] MEDS ORDERED: OLMESARTAN 20 MG TABLET PO SCH (09:00)
--- NOTE | 2017-03-15 12:10 | Discharge Summary ---
Yesica Leggett April RN, am scribing for, and in the presence of, Ginna Bowser DO 12 :06. Hospital Course - Hospital Course Hospital Course: Mr. Lino is a 71-year-old male followed by Dr. Benson with a history of CAD. He had PCI of the obtuse marginal March 20, 2016 at the time of acute coronary syndrome. He is doing well since that time. On March 13 he began having chest discomfort that felt exactly like the pain that he had in February of last year. He presented the emergency department for further evaluation. He did not have shortness of breath, nausea, or diaphoresis associated with this pain. He did indicate some discomfort in his shoulder. He was taken to the cardiac catheterization lab on the evening of March 13 with the following findings:1. EF not assessed 2. Hemodynamics LV: 122/4 EDP:13 Ao:120/70 3. Left main: Mild luminal irregularities and this is a very small vessel. 4: Left anterior descending artery: There is diffuse moderate disease in the LAD that this progressed minimally from his previous left heart catheterization. There is mild to moderate disease throughout but no high- grade epicardial stenosis in the LAD or its large first diagonal. 5: Left circumflex artery: This vessel is nondominant. The previously deployed stents in the obtuse marginal are widely patent with minimal lumen loss 6: Right coronary artery: Is a very large dominant vessel. There is ectasia in the proximal segment. There is approximately 40% ostial stenosis of a right PDA. The there is a large posterior lateral branch that has a small nipple and 100% occlusion at the takeoff of the PDA. There is DEE 0 flow in this vessel. After the posterior lateral branch was opened. There is a first branch the posterior lateral branch has ostial 99% stenosis. It has DEE II flow this was ballooned but felt too small for stenting safely. Despite multiple attempts to cross into the PDA and multiple doses of nitroglycerin there was no success in opening the occluded PDA that was potentially jailed. The intent was to be distal to this branch and this may represent plaque shift. Plan: 1. Therapeutic lifestyle changes. 2. Escalate dual antiplatelet therapy the patient had a massive clot burden on clopidogrel and aspirin 3. Cardiac rehabilitation 4. Because of bradycardia and ventricular bigeminy with hindu of flow the patient be monitored in the ICU. I anticipate a significant troponin elevation. 5. If the patient's bradycardia resolves consider beta-gisele at this time his heart rate will not allow 6. The patient is intolerant of statins in the past continue Zetia consider PCS canine inhibitors 7. Continue aspirin and ARB He has done well since heart catheterization. He denies having had any further chest pain. He denies any shortness of breath, palpitations, or dizziness. Right wrist cath access site is soft without evidence of bleeding or hematoma. Post cath he did have slight elevation of troponin. But he has had no further chest pain or EKG changes. All other labs unremarkable. Echocardiogram with ejection fraction 60%. He had mild inferoposterior hypokinesis with normal overall EF. Except for some slight bradycardia his vital signs been stable throughout the night. monitoring tech currently shows sinus bradycardia with heart rates in the 50s. It is felt he has met maximum benefit from hospitalization will be discharged home. We will schedule follow-up with Dr. Benson in 2 weeks. The patient has been intolerant of statins in the past. Continue Zetia as well as Lovaza. Due to his bradycardia, beta-gisele will not be initiated at this time. If his bradycardia resolves this can be started later time. He will be discharged home on Benicar HCT, baby aspirin, and Brilinta. BETA GISELE IS CONTRAINDICATED BECAUSE OF THE PATIENT'S BRADYCARDIA HE HAS BEEN STATIN INTOLERANT AND DECLINED STATIN - Time spent with patient Time with patient DS: Greater than 30 minutes Diagnosis - Discharge Diagnosis (1) CAD (coronary artery disease) Status: Chronic (2) Essential (primary) hypertension Status: Chronic (3) Non-ST elevated myocardial infarction (non-STEMI) Status: Resolved (4) Hyperlipidemia Status: Chronic (5) Statin intolerance Status: Chronic Specialty Discharge - Follow Up or Referrals Follow up with: Ginna Bowser DO [Physician] - 1 Week (ECG) Discharge Plan - Discharge Data Disposition: Disch To Home/Self Care Condition at Discharge: Stable Discharge Diet: advance to your usual diet Activity: resume usual activities as tolerated, ambulate only with your walker Hygiene: no restrictions Weight Bearing at Discharge: full weight bearing Driving: no restrictions Contact your physician if you experience:: fever over 101, Difficulty voiding, Redness or swelling, Nausea/Vomiting, Shortness of breath, Bleeding, pain uncontrolled by pain medications - Discharge Medications New Ticagrelor [Brilinta] 90 mg PO BID #60 tablet Continue Olmesartan/Hydrochlorothiazide [Benicar Hct 20-12.5 mg Tablet] 1 each PO QAM Aspirin [Ecotrin] 81 mg PO QAM [place]-3 Fatty Acids [Fish Oil] 300 mg PO BID Ezetimibe 10 mg PO QAM Magnesium Chloride [Slow Mag] 64 mg PO BID Multivitamin/Iron/Folic Acid [Centrum Complete Multivit Tab] 1 each PO QPM Cyanocobalamin (Vitamin B-12) [Vitamin B-12] 1,000 mcg PO BID Discontinued Clopidogrel Bisulfate [Clopidogrel] 75 mg PO QPM - Follow Up or Referral Follow Up: Ginna Bowser DO [Physician] - 1 Week (ECG) - Forms/Instructions Instructions: Left Heart Catheterization (DC), Heart Healthy Diet (GEN), Coronary Intravascular Stent Placement (DC) Exam - Constitutional Vitals: Period Temp Pulse Resp BP Sys/Cuevas Pulse Ox Last 24 Hr 97.6 F-99.1 F 52-70 14-21 108-150/61-82 65-98 General appearance: normal weight, no acute distress - Head Head exam: Absent: abrasion, hematoma - Eye Eye exam: Absent: periorbital swelling, laceration to eyelids Pupils: Present: CLAY - Neck Neck exam: Absent: tenderness - Respiratory Respiratory exam: Present: clear to auscultation bilaterally. Absent: accessory muscle use, chest wall tenderness - Cardiovascular Cardiovascular exam: Present: bradycardia - GI/Abdominal GI/Abdominal exam: Present: normal bowel sounds, soft. Absent: distended, tenderness - Extremities Exam Extremities exam: Present: other (Right wrist soft without evidence of bleeding or hematoma). Absent: calf tenderness, edema - Neurological Exam Neurological exam: Present: alert, oriented X3 - Psychiatric Psychiatric exam: Present: normal affect, normal mood - Skin Skin exam: Present: warm, dry Discharge Results Procedures and tests throughout hospitalization: Pending Orders 03/14/17 00:21 MRSA Surveillence, Inf Control Routine Labs on day of discharge: Labs from last 24 hours 03/15/17 03/15/17 03/15/17 03:51 03:51 03:51 WBC 8.2 RBC 4.47 Hgb 14.1 Hct 40.0 L MCV 89.5 MCH 32 MCHC 35.3 RDW 12.8 Plt Count 219 MPV 9.8 Neut % (Auto) 63.2 Lymph % (Auto) 24.6 Alfalfa % (Auto) 9.1 Eos % (Auto) 2.3 Baso % (Auto) 0.4 Neut # (Auto) 5.2 Lymph # (Auto) 2.0 Alfalfa # (Auto) 0.7 Eos # (Auto) 0.2 Baso # (Auto) 0.0 Immature Gran % 0.4 Nucleated RBC % 0.0 Immature Gran # 0.03 Nucleated RBCs # 0.00 Immature Plt Fraction 0.0 Sodium 140 Potassium 4.4 Chloride 104 Carbon Dioxide 30 Anion Gap 10.4 BUN 17 Creatinine 1.30 GFR Calculation 74 BUN/Creatinine Ratio 13.00 Glucose 113 H POC Glucose Calculated Osmolality 281.4 Calcium 9.1 Magnesium 2.1 Troponin I 7.120 H 03/14/17 03/14/17 03/14/17 19:58 15:47 11:20 WBC RBC Hgb Hct MCV MCH MCHC RDW Plt Count MPV Neut % (Auto) Lymph % (Auto) Alfalfa % (Auto) Eos % (Auto) Baso % (Auto) Neut # (Auto) Lymph # (Auto) Alfalfa # (Auto) Eos # (Auto) Baso # (Auto) Immature Gran % Nucleated RBC % Immature Gran # Nucleated RBCs # Immature Plt Fraction Sodium Potassium Chloride Carbon Dioxide Anion Gap BUN Creatinine GFR Calculation BUN/Creatinine Ratio Glucose POC Glucose 154 H 137 H 151 H Calculated Osmolality Calcium Magnesium Troponin I 03/14/17 09:41 WBC RBC Hgb Hct MCV MCH MCHC RDW Plt Count MPV Neut % (Auto) Lymph % (Auto) Alfalfa % (Auto) Eos % (Auto) Baso % (Auto) Neut # (Auto) Lymph # (Auto) Alfalfa # (Auto) Eos # (Auto) Baso # (Auto) Immature Gran % Nucleated RBC % Immature Gran # Nucleated RBCs # Immature Plt Fraction Sodium Potassium Chloride Carbon Dioxide Anion Gap BUN Creatinine GFR Calculation BUN/Creatinine Ratio Glucose POC Glucose 119 H Calculated Osmolality Calcium Magnesium Troponin I - Imaging and Cardiology Cardiology Procedure: image reviewed by me, report reviewed by me Procedure: Chest x-ray: report reviewed by me DS: Provider Consults: 03/13/17 20:22 Consult to Cardiac Rehabilitation [CONS] Routine Reason for Cardiac Rehabilitation: Risk Factor Modification Other Consult Comment: Evaluate and recommend Expected date of discharge: 03/15/17 I, Ginna Bowser DO, personally performed the services described in this documentation, ascribed by Linda Robert RN in my presence, and it is both accurate and complete .
[2017-03-15 12:35] VITALS: BP 136/82
== END 2017-03-15 14:55 | disposition home or self-care (01) | DRG 247 ==
LOC: N.EDINP 16:53 → N.ED 16:53 → N.TELES 18:50 → N.CC 20:39 → N.TELEN 03-14 14:22
PROVIDERS: ADMIT Internal Medicine Cardiovascular Disease; ATTEND Internal Medicine Cardiovascular Disease
PROC: CLCCHCL (ICD-10-PCS; 2017-03-13 18:15)